=== PATIENT | male | born 1965 | race Caucasian/White ===

== ENCOUNTER → 2019-04-01 | Outpatient (CLI) | payer OTHER ==
--- NOTE | 2019-04-01 12:27 | 2DMMODE ---
[place] [address] 2 D/M-MODE ECHOCARDIOGRAM Name: ALPHONSO HDZ Room: [facility]#: [id number] Admission: 04/01/19 Attend Phys: Esvin Lopes, Discharge: Date of : 61 Date of Service: 04/01/19 1226 Report #: [id number] THIS REPORT FOR: cc: FAM - Family physician unknown FAM - Family physician unknown Se Carmen MD [facility] ~ APPROVED REPORT Study performed: 04/01/2019 10:43:35 EXAM: Comprehensive 2D, Doppler, and color-flow Echocardiogram Patient Location: Out-Patient BSA: 2.31 HR: 85 bpm BP: 130/91 mmHg Other Information Study Quality: Good Indications Murmur Hypertension/HDD 2D Dimensions IVSd: 14.69 (7-11mm) LVOT Diam: 20.69 (18-24mm) LVDd: 49.38 mm PWd: 10.88 (7-11mm) Ascending Ao: 44.75 (22-36mm) LVDs: 34.58 (25-40mm) Aortic Root: 36.24 mm Volumes Left Atrial Volume (Systole) LA ESV Index: 15.10 mL/m2 Aortic Valve AoV Peak Fred.: 4.18 m/s AO Peak Gr.: 69.74 mmHg LVOT Max P.32 mmHg AO Mean Gr.: 40.40 mmHg LVOT Mean P.37 mmHg LVOT Max V: 1.04 m/s AO V2 VTI: 92.19 cm LVOT Mean V: 0.72 m/s KOKI (VTI): 0.76 cm2 LVOT V1 VTI: 20.92 [place] [address] 2 D/M-MODE ECHOCARDIOGRAM Name: ALPHONSO HDZ Room: [facility]#: [id number] Admission: 04/01/19 Attend Phys: Esvin Lopes, Discharge: Date of : 61 Date of Service: 04/01/19 1226 Report #: [id number] E/A Ratio: 0.69 MV Decel. Time: 290.07 ms MV E Max Fred.: 0.48 m/s MV PHT: 84.12 ms MVA (PHT): 2.62 cm2 TDI E/Lateral E': 6.00 E/Medial E': 6.00 Medial E' Fred.: 0.08 m/s Lateral E' Fred.: 0.08 m/s Pulmonary Valve PV Peak Fred.: 0.88 m/s PV Peak Gr.: 3.11 mmHg Left Ventricle The left ventricle is normal size. There is normal LV segmental wall motion. Mild concentric left ventricular hypertrophy. Left ventricular systolic function is normal. The left ventricular ejection fraction is within the normal range. LVEF is 60-65%. Grade I - abnormal relaxation pattern. Right Ventricle The right ventricle is normal size. The right ventricular systolic function is normal. Atria The left atrium size is normal. The right atrium size is normal. Aortic Valve Moderate aortic valve sclerosis. Trace aortic regurgitation. Moderate aortic stenosis. Mitral Valve The mitral valve is normal in structure. There is no mitral valve regurgitation noted. No evidence of mitral valve stenosis. Tricuspid Valve The tricuspid valve is normal in structure. There is no tricuspid valve regurgitation noted. Pulmonic Valve The pulmonary valve is normal in structure. There is no pulmonic valvular regurgitation. [place] [address] 2 D/M-MODE ECHOCARDIOGRAM Name: ALPHONSO HDZ Room: [facility]#: [id number] Admission: 04/01/19 Attend Phys: Esvin Lopes, Discharge: Date of : 61 Date of Service: 04/01/19 1226 Report #: [id number] The aortic root is normal in size. The ascending aorta is mildly dilated. IVC is normal in size and collapses >50% with inspiration. Pericardium There is no pericardial effusion. <Conclusion> The left ventricle is normal size. Mild concentric left ventricular hypertrophy. Left ventricular systolic function is normal. The left ventricular ejection fraction is within the normal range. LVEF is 60-65%. Grade I - abnormal relaxation pattern. The right ventricle is normal size. The left atrium size is normal. Moderate aortic valve sclerosis. Trace aortic regurgitation. Moderate aortic stenosis. The mitral valve is normal in structure. The tricuspid valve is normal in structure. IVC is normal in size and collapses >50% with inspiration. There is no pericardial effusion. There is normal LV segmental wall motion. The ascending aorta is mildly dilated. <ELECTRONICALLY SIGNED> By: Se Carmen MD, FACC 04/01/19 1226 1226 1226 Se Carmen MD, FACC /INF
--- NOTE | 2019-04-01 17:45 | CARDNUC ---
[place] [address] CARDIAC NUCLEAR IMAGING REPORT Name: ALPHONSO HDZ Room: [facility]#: [id number] Admission: 04/01/19 Attend Phys: Esvin Lopes, Discharge: Date of : 61 Date of Service: 04/01/19 1744 Report #: [id number] THIS REPORT FOR: cc: FAM - Family physician unknown FAM - Family physician unknown Ned Koenig MD [facility] ~ APPROVED REPORT Study performed: 04/01/2019 09:50:25 Exam: Nuclear Stress Test Indication: Palpitations Patient Location: Out-Patient Stress Tech: Fiorella Scanlon Stress Nurse: Clari Herbert RN NM Tech:CHINA Wilcox Ht: 6 ft 2 in Wt: 229 lbs BSA: 2.30 m2 BMI: 29.39 Medical History Medical History: hypertension Medications: amlodipine, hctz, lisinopril Allergies: No known drug allergies Cardiac Risk Factors: htn, former tobacco, family hx Previous Cardiac Procedures: none Exercise History: Physically active Stress Test Details Stress Test: Exercise stress testing was performed using a Ignacio protocol. HR Resting HR: 72 bpm Max Heart Rate (APMHR): 165 bpm Max HR Achieved: 165 bpm Target HR (85% APMHR): 140 bpm % of APMHR: 100 Recovery HR: 101 bpm BP Resting BP: 134/93 mmHg Max BP: 212/104 mmHg ECG Resting ECG: sinus rhythm with nonspecific [place] [address] CARDIAC NUCLEAR IMAGING REPORT Name: ALPHONSO HDZ Room: [facility]#: [id number] Admission: 04/01/19 Attend Phys: Esvin Lopes, Discharge: Date of : 61 Date of Service: 04/01/19 1744 Report #: [id number] Stress ECG: sinus tachycardia with nonspecific ST segment depression ST Change: None Arrhythmia: None Recovery ECG: sinus rhythm with nonspecific ST segment depression Recovery Arrhythmia: None Clinical Reason for Termination: Fatigue Exercise duration: 11 min 29 sec Exercise capacity: 188 METs Overall Exercise Capacity for Age: Superior Functional Aerobic Impairment 100% The patient tolerated standard Ignacio protocol exercise without significant cardiac symptoms. Stress ECG Conclusion The baseline 12-lead EKG show sinus rhythm with nonspecific ST segment depression. EKGs obtained during and post exercise showed sinus rhythm and sinus tachycardia with no significant ST segment changes noted when compared to baseline EKG. There were no stress-induced arrhythmias. NM EXAM: Myocardial Perfusion REST/STRESS Imaging Protocol: Rest Tc-99m/Stress Tc-99m 1 day Resting Data Rest SPECT myocardial perfusion imaging was performed in supine position 30 minutes following the intravenous injection of 10.2 mCi of Tc-99m Sestamibi. Time of rest injection: 824 Date: 04/01/2019 The images were gated to evaluate regional wall motion and calculate left ventricular ejection fraction. Administration Route: IV Administration Site: Right Hand Exercise Stress At peak stress, the patient was injected intravenously with 33.6mCi of Tc-99m Sestamibi. Time of stress injection: 954 Date: 04/01/2019 Administration Route: IV Administration Site: Right Hand Gated Stress SPECT was performed 40 minutes after stress injection. The images were gated to evaluate regional [place] [address] CARDIAC NUCLEAR IMAGING REPORT Name: ALPHONSO HDZ Room: [facility]#: [id number] Admission: 04/01/19 Attend Phys: Esvin Lopes, Discharge: Date of : 61 Date of Service: 04/01/19 1744 Report #: [id number] left ventricular ejection fraction. Prone imaging was performed. Study Quality Study: Good Artifact: Mild Diaphragmatic artifact Study Data At rest, the left ventricular ejection fraction was 63%.. Post stress, the left ventricular ejection was 73%.. TID = 0.83. Perfusion Images obtained in the supine position at rest and post stress show mild photopenia of the inferior wall that resolves completely with post stress prone imaging. This is consistent with diaphragmatic attenuation artifact. No other significant defects were identified. Wall Motion Normal left ventricular wall motion. Nuclear Conclusion ECG Findings: non-diagnostic Clinical Findings: negative for ischemia Nuclear Findings: negative for ischemia Exercise Capacity: normal Left Ventricular Function: normal Risk Study: low Myocardial perfusion images show no defect to suggest ischemia. Left particular systolic function is normal on gated studies. This is a low risk study. <Conclusion> The baseline 12-lead EKG show sinus rhythm with nonspecific ST segment depression. EKGs obtained during and post exercise showed sinus rhythm and sinus tachycardia with no significant ST segment changes noted when compared to baseline EKG. There were no stress-induced arrhythmias. <ELECTRONICALLY SIGNED> By: Ned Koenig MD, FACC 04/01/19 1744 1744 1744 Ned Koenig MD, FACC /INF
== END ==
LOC: M.NUC 03-16 07:40
DX: I06.0 Rheumatic aortic stenosis (principal); I11.9 Hypertensive heart disease without heart failure; R94.31 Abnormal electrocardiogram [ECG] [EKG]; Z79.899 Other long term (current) drug therapy; Z82.49 Family history of ischemic heart disease and other diseases of the circulatory system

== ENCOUNTER → 2019-04-06 | Outpatient (CLI) | payer OTHER | LOC: M.RAD 15:40 | DX: I70.0 Atherosclerosis of aorta (principal); M47.816 Spondylosis without myelopathy or radiculopathy, lumbar region; K56.41 Fecal impaction; M16.0 Bilateral primary osteoarthritis of hip; Z90.49 Acquired absence of other specified parts of digestive tract ==